=== PATIENT | male | born 1995 | race Caucasian/White ===

== ENCOUNTER 2017-04-06 21:54 | Emergency (ER) | payer SELFPAY ==
--- NOTE | 2017-04-06 22:26 | EDPHY ---
H & P Time Seen by Provider: 04/06/17 22:15 HPI/ROS: HPI The patient presents brought in by ambulance from a music concert for alcohol intoxication. Apparently, he has been drinking several alcoholic drinks tonight. He was found in an alley outside of a [place] and police had to [place] him. He fell and scraped both of his knees. He now says he is having some difficulty breathing and has a history of asthma. He says it is hard to take a deep breath in. He is also reporting vague chest pain. He denies any loss of consciousness or falls. REVIEW OF SYSTEMS Constitutional: No fever, no chills. Eyes: No discharge. ENT: No sore throat. Cardiovascular: Positive for chest pain, no palpitations. Respiratory: No cough, no shortness of breath. Gastrointestinal: No abdominal pain, no vomiting. Genitourinary: No hematuria. Musculoskeletal: No back pain. Skin: No rashes. Neurological: No headache. 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17 Soc Hx: Lives locally, drinks alcohol PHYSICAL General Appearance: Alert, appears intoxicated, stumbling in the room Eyes: Pupils equal and round no pallor or injection ENT, Mouth: Mucous membranes moist Respiratory: There are no retractions, lungs are clear to auscultation Cardiovascular: Regular rate and rhythm Gastrointestinal: Abdomen is soft and non-tender, no masses, bowel sounds normal Neurological: A&O, moves all extremities Skin: Warm and dry, no rashes Musculoskeletal: Neck is supple non tender Extremities: symmetrical, full range of motion, abrasions to both knees Psychiatric: Patient is oriented X 3, there is no agitation Source: Patient, EMS Constitutional: Initial Vital Signs Temperature (C) 36.5 C 04/06/17 22:00 Heart Rate 79 04/06/17 22:00 Respiratory Rate 18 04/06/17 22:00 Blood Pressure 140/70 H 04/06/17 22:00 O2 Sat (%) 94 04/06/17 22:00 O2 Delivery Mode Room Air Allergies/Adverse Reactions: No Known Allergies Allergy (Unverified 04/06/17 22:33) Home Medications: Medication Instructions Recorded NK [No Known Home Meds] 04/06/17 Medical Decision Making - Diagnostics EKG Interpretation: EKG: Complete interpretation has been separately recorded in the [facility] archive. Summary impression: Sinus arrhythmia ED Course/Re-evaluation: The patient was monitored in the emergency room, he felt better. He had no ongoing symptoms. His vital signs remained normal. His EKG shows sinus arrhythmia. [facility] given his alcohol intoxication. He is able to walk with a steady gait. Differential Diagnosis: This is a 21-year-old male with WPW and asthma who presents from a concert after being found in an alley, complaining of some shortness of breath. On exam , he appears somewhat anxious, vital signs are normal, he does not have any wheezing or murmur on exam. Differential diagnosis includes atrial fibrillation, asthma exacerbation, alcohol intoxication, anxiety attack. He refuses a neb. Departure - Departure Disposition: Home, Routine, Self-Care Clinical Impression: Alcohol intoxication Condition: Good Instructions: Alcohol Intoxication (ED) Referrals: Patient,NotPresent [Unknown] - As per Instructions
--- NOTE | 2017-04-06 22:43 | CPEKG ---
Heart Rate: 69 RR Interval: 870 P-R Interval: 140 QRSD Interval: 136 QT Interval: 440 QTC Interval: 472 P Franklin: 46 QRS Franklin: -6 T Wave Franklin: 48 EKG Severity - ABNORMAL ECG - EKG Impression: SINUS ARRHYTHMIA, RATE 52-86 EKG Impression: VENT PREEXCITATION, LEFT ACCESSORY PATHWAY Electronically Signed By: Berna Delgado 07-Apr-2017 07:06:40
[2017-04-06 23:50] VITALS: BP 131/66; PULSE 88; RESP 16; TEMP 97.9; O2SAT 96
== END 2017-04-06 23:49 | disposition home or self-care (01) ==
LOC: EDUNIT#
DX: F10.129 Alcohol abuse with intoxication, unspecified (principal); J45.909 Unspecified asthma, uncomplicated